=== PATIENT | female | born 1970 | race Caucasian/White ===

== ENCOUNTER 2020-02-24 17:53 | Emergency (ER) | payer OTHER ==
[~2020-02-24] VITALS: Ht 154.9 cm; Wt 131.5 kg
[~2020-02-24 17:53] MED LIST: ? ANTIBIOTIC; ALBU90OI INH; AMPDEX10; CHOL10002 PO; CLON1; CLON1 PO; CODGUAEL PO; Cipro500 MG PO; Flagyl500 MG PO; IBUP800 PO; LEVSOD75 PO; LITH300C PO; Levaquin750 MG PO; METF500 PO; NAPR500; OMEPRAZOLE MAGN20 MG PO; PEPTO BISMAL; PROBIOTIC1 EAC2 PO; PSEU120ER PO; Percocet 5-3251 EACH PO; QUET25; QUIN325; RANI150 PO; SUMA25 PO; TRAACE PO; VERA240ER PO; Zithromax250 MG PO; Zofran Odt4 MG PO; [UNRECOGNIZED DRUG - REMARK]
== END 2020-02-24 20:10 | disposition home or self-care (01) ==
LOC: ER 17:53
DX: G43.109 Migraine with aura, not intractable, without status migrainosus (principal); F31.9 Bipolar disorder, unspecified; Z88.5 Allergy status to narcotic agent; Z79.899 Other long term (current) drug therapy; Z79.84 Long term (current) use of oral hypoglycemic drugs; Z87.891 Personal history of nicotine dependence
CPT/HCPCS: 96361; 96374; 96375; 99284-25; J0780; J1200; J1885; J2405; J7030

== ENCOUNTER 2020-09-11 08:16 | Day surgery (SDC) | payer OTHER ==
[~2020-09-11] VITALS: Ht 154.9 cm; Wt 142.9 kg
[2020-09-11] MEDS ORDERED: PIOG15 PO (08:51)
[2020-09-11] MEDS ORDERED: AMPDEX5 PO (08:52)
--- NOTE | 2020-09-11 09:13 | NUR ---
Ambulatory in Day Surgery History, Chart, Medications and Allergies reviewed before start of procedure.Patient confirms NPO status and agrees with scheduled surgery. Lungs clear T/O to Auscultation. Patient States Post-Procedure ride home has been arranged WITH SON
--- NOTE | 2020-09-11 10:03 | NUR ---
09/11/20 1003 Caroline Toussaint History, Chart, Medications and Allergies reviewed before start of procedure.MAC CASE WITH DR. MADRIGAL.
--- NOTE | 2020-09-11 10:23 | NUR ---
RECIEVED PATIENT AND REPORT VSS
--- NOTE | 2020-09-11 10:43 | NUR ---
Discharge instructions reviewed with patient. Patient verbalizes understanding. Copy given to patient to take home. Patient States Post-Procedure ride home has been arranged. Discharged via wheelchair to private car for ride home.
== END 2020-09-11 23:02 | disposition home or self-care (01) ==
LOC: ORSCMMR 08:16 → ORD 09:30 → ORSCMMR 09:30
PROVIDERS: Internal Medicine Gastroenterology
PROC: 0DB78ZX Excision of Stomach, Pylorus, Via Natural or Artificial Opening Endoscopic, Diagnostic (ICD-10-PCS; principal; 2020-09-11 09:30)
PROC: 0DB98ZX Excision of Duodenum, Via Natural or Artificial Opening Endoscopic, Diagnostic (ICD-10-PCS; principal; 2020-09-11 09:30)
PROC: 0DB48ZX Excision of Esophagogastric Junction, Via Natural or Artificial Opening Endoscopic, Diagnostic (ICD-10-PCS; principal; 2020-09-11 09:30)
DX: K22.70 Barrett's esophagus without dysplasia (principal); K21.9 Gastro-esophageal reflux disease without esophagitis; K44.9 Diaphragmatic hernia without obstruction or gangrene; G47.33 Obstructive sleep apnea (adult) (pediatric); E11.9 Type 2 diabetes mellitus without complications; F31.9 Bipolar disorder, unspecified; E66.01 Morbid (severe) obesity due to excess calories; Z68.43 Body mass index [BMI] 50.0-59.9, adult; Z79.899 Other long term (current) drug therapy
CPT/HCPCS: 82947; 88305; 88342; J2704; J7120

== ENCOUNTER 2024-06-25 12:05 | Emergency (ER) | payer OTHER ==
[~2024-06-25] VITALS: Ht 165.1 cm; Wt 153.3 kg
[~2024-06-25 12:05] MED LIST changes: +AMPDEX5 PO; +PIOG15 PO
[2024-06-25 12:14] VITALS: BP 167/101
[2024-06-25 13:04] LABS: Albumin, Blood 3.9 g/dL (3.4-5.0); Bilirubin, Total 0.9 mg/dL (0.1-1.0); Bun/Creatinine Ratio 13.3 (12.0-20.0); Calcium, Blood 9.3 mg/dL (8.5-10.1); Creatinine, Blood 0.9 mg/dL (0.40-1.00); Globulin, Blood 3.9 g/dL (2.2-4.0); Potassium, Blood 4.5 mmol/L (3.5-5.5); Total Protein, Blood 7.8 g/dL (6.4-8.2)
[2024-06-25 13:40] LABS: Source, Urine Clean Catch
[2024-06-25 13:45] LABS: Appearance, Urine Hazy (Clear); Bilirubin, Urine Neg (Neg); Blood, Urine Neg (Neg); Color, Urine Yellow (P-Yellow); Glucose Qualitative, Urine Neg (Neg); Ketones, Urine Neg (Neg); Leukocyte Esterase, Urine Neg (Neg); Nitrite, Urine Neg (Neg); Protein, Urine 1+ (Neg); Specific Gravity, Urine 1.015 (1.003-1.022); Urobilinogen, Urine 1+ (Normal)
[2024-06-25 14:43] LABS: Amorphous Light (0-Heavy); Bacteria Many /hpf; Mucus Light (0-Heavy); Red Blood Cells, Urine 0-2 /hpf (0-2); Squamous Epithelial Cells Many /hpf (Few)
[2024-06-25] MEDS ORDERED: Ketorolac Tromethamine 30mg Vial IV ONE (15:45)
[2024-06-25] MEDS ORDERED: Ondansetron HCl 2 MG / ML 2ML Vial IV ONE (15:45)
[2024-06-25] MEDS ORDERED: ONDA4ODT MM (15:45)
== END 2024-06-25 16:04 | disposition home or self-care (01) ==
LOC: ER 12:05
PROVIDERS: Physician Assistant
DX: K52.9 Noninfective gastroenteritis and colitis, unspecified (principal); E03.9 Hypothyroidism, unspecified; E11.9 Type 2 diabetes mellitus without complications; G47.30 Sleep apnea, unspecified; F31.9 Bipolar disorder, unspecified; Z79.899 Other long term (current) drug therapy; Z79.890 Hormone replacement therapy; Z87.891 Personal history of nicotine dependence
CPT/HCPCS: 74177; 80053; 81001; 83690; 83735; 87086; 96374-59; 96375; 99284-25; J1885; J2405; Q9967

== ENCOUNTER 2025-09-02 08:18 | Emergency (ER) | payer OTHER ==
[~2025-09-02] VITALS: Ht 154.9 cm; Wt 142.4 kg
[~2025-09-02 08:18] MED LIST changes: +ONDA4ODT MM
[2025-09-02] MEDS ORDERED: NS 1,000 ML IV SCH (09:35)
[2025-09-02 09:58] LABS: BASOPHILS ABSOLUTE AUTO 0.04 K/mm3 (0.00-0.23); BASOPHILS PERCENT AUTO 0 % (0-2); EOSINOPHILS ABSOLUTE AUTO 0.37 K/mm3 (0.00-0.68); EOSINOPHILS PERCENT AUTO 4 % (0-6); Hematocrit 43.5 % (33.0-51.0); Hemoglobin 13.7 g/dL (11.5-16.0); IMMATURE GRAN ABSOLUTE AUTO 0.03 K/mm3 (0.00-0.10); IMMATURE GRAN PERCENT AUTO 0 % (0-1); LYMPHOCYTES ABSOLUTE AUTO 3.61 K/mm3 (0.84-5.20); LYMPHOCYTES PERCENT AUTO 35 % (21-46); MONOCYTES ABSOLUTE AUTO 0.70 K/mm3 (0.16-1.47); MONOCYTES PERCENT AUTO 7 % (4-13); Mean Corpuscular HGB Conc 31.5 g/dL (31.5-36.5); Mean Corpuscular Volume 94 fL (80-100); NEUTROPHILS ABSOLUTE AUTO 5.68 K/mm3 (1.96-9.15); NEUTROPHILS PERCENT AUTO 55 % (41-73); NRBC ABSOLUTE 0.00 K/mm3 (0.00-0.02); NRBC Auto 0.0 /100 WBC (0.0-0.2); Platelet Count 309 K/mm3 (150-400); RDW Coefficient Variation 14.8 % (11.7-14.2); RDW Standard Deviation 51.4 fL (35.1-46.3)
[2025-09-02 10:14] LABS: Alanine Aminotransfer (ALT/SGP 24.0 U/L (12-78); Albumin, Blood 3.8 g/dL (3.4-5.0); Albumin/Globulin Ratio 1.0 (0.8-1.8); Anion Gap 6.0 mmol/L (3-11); Aspartate Aminotrans (AST/SGOT 17.0 U/L (12-37); Bilirubin, Total 0.5 mg/dL (0.1-1.0); Blood Urea Nitrogen 11.0 mg/dL (8-24); CO2, Blood 27.0 mmol/L (21-32); Calcium, Blood 9.0 mg/dL (8.5-10.1); Chloride, Blood 111.0 mmol/L (98-108); Creatinine, Blood 1.09 mg/dL (0.40-1.00); Globulin, Blood 3.8 g/dL (2.2-4.0); Glucose, Blood 106.0 mg/dL (70-99); Potassium, Blood 4.2 mmol/L (3.5-5.5); Sodium, Blood 140.0 mmol/L (136-145); Total Protein, Blood 7.6 g/dL (6.4-8.2)
[2025-09-02 11:00] VITALS: BP 133/82
[2025-09-02] MEDS ORDERED: OXYC5 PO (11:06)
== END 2025-09-02 11:15 | disposition home or self-care (01) ==
LOC: ER 08:18
PROVIDERS: Emergency Medicine
DX: R10.9 Unspecified abdominal pain (principal)
CPT/HCPCS: 74177; 80053; 83690; 85025; 96360-59; 99284-25; J7030; Q9967